=== PATIENT | female | born 1955 | race Native Hawaiian/Other Pacific Islander ===

== ENCOUNTER 2020-06-03 18:49 | Emergency (ER) | payer OTHER | END 2020-06-03 21:25 | disposition home or self-care (01) | LOC: CSHERS 18:49 | DX: T83.028A Displacement of other urinary catheter, initial encounter (principal) | CPT/HCPCS: 51702; 74018 ==

== ENCOUNTER 2021-09-20 08:31 | Emergency (ER) | payer OTHER ==
[2021-09-20 09:51] LABS: Bilirubin Neg (Negative); Blood, Urine 250 (Negative); Clarity Cloudy (Clear); Glucose, Urine (Dipstick) Normal (Negative); Ketone, Urine Negative (Negative); Leukocyte 500 (Negative); Nitrite Positive (Negative); Protein, Urine (Dipstick) 100 mg/dl (Neg-Trace); Urobilinogen Normal mg/dL (Less than 2)
[2021-09-20 10:03] LABS: Bacteria/HPF 4+ HPF (None Seen); RBC/HPF 21-50 HPF (0-3); Squamous Epithelial 0-3 HPF (0-3); WBC/HPF 21-50 HPF (0-3)
[2021-09-20] MEDS ORDERED: levETIRAcetam in NS 100 ML ONE (15:39)
== END 2021-09-20 11:10 | disposition home or self-care (01) ==
LOC: CSHERS 08:31
DX: N30.01 Acute cystitis with hematuria (principal); Z86.73 Personal history of transient ischemic attack (TIA), and cerebral infarction without residual deficits
CPT/HCPCS: 81003; 81015; 87086; J1953

== ENCOUNTER 2021-09-20 12:56 | Inpatient (IN) | payer OTHER ==
[2021-09-20 13:46] LABS: #Eosinphils 0.1 10x3/uL (0.0-0.5); #Monocytes 0.7 10x3/uL (0.0-1.1); #Neutrophils 6.5 10x3/uL (1.5-8.4); %Basophils 0.4 % (0.0-2.0); %Eosinophils 1.4 % (0.0-6.0); %Lymphocytes 27.2 % (18.0-47.0); %Monocytes 6.5 % (0.0-10.0); %Neutrophils 64.1 % (40.0-75.0); Hemoglobin 11.4 g/dL (12.0-15.5); Mean Corpuscular HGB CONC 33.2 g/dL (32.0-36.0); Mean Corpuscular Hemoglobin 29.3 pg (27.0-33.0); Mean Corpuscular Volume 88.2 fl (81.6-98.3); Mean Platelet Volume 9.4 fl (7.4-10.4); Platelet Count 313 10x3/uL (150-450); RBC Distribution Width 12.9 % (11.5-14.5); Red Blood Cell (RBC) Count 3.89 10x6/uL (3.90-5.03); White Blood Cell (WBC) Count 10.2 10x3/uL (3.5-10.5)
[2021-09-20 14:12] LABS: ALT (SGPT) 9 U/L (8-55); AST (SGOT) 19 U/L (5-34); Albumin 3.8 g/dL (3.4-4.8); Alkaline Phosphatase 76 U/L (40-110); Anion Gap 14 mmol/L (10-20); BUN (Urea Nitrogen) 17 mg/dL (9.8-20.1); Bilirubin, Total 0.5 mg/dL (0.2-1.2); Calc. Creatinine Clearance 0 mL/min (70-130); Calcium 9.3 mg/dL (7.8-10.44); Carbon Dioxide 23 mmol/L (23-31); Chloride 98 mmol/L (98-107); Estimated GFR 97; Globulin 3.4 g/dL (2.4-3.5); Glucose 186 mg/dL (80-115); Potassium 3.5 mmol/L (3.5-5.1); Protein, Total 7.2 g/dL (5.8-8.1); Sodium 131 mmol/L (136-145)
[2021-09-20] MEDS ORDERED: cefTRIAXone\\ROCEPHIN 2 GM VIAL ONE (14:55)
[2021-09-20 15:52] LABS: SARS-CoV-2 NAA Rapid Test Not Detected (NotDetected)
[2021-09-20] MEDS ORDERED: Valproate Sodium 250 mg/5 ml UD Cup PO SCH ×2 (16:00→21:00)
[2021-09-20 17:01] LABS: Lactic Acid 1.2 mmol/L (0.5-2.2)
[2021-09-20] MEDS ORDERED: Labetalol HCl 100 MG/20 ML VIAL SLOW IVP PRN (18:45)
[2021-09-20] MEDS ORDERED: Moisturizing Cream (Eucerin) 113 GM JAR TOP PRN (18:45)
[2021-09-20] MEDS ORDERED: hydrALAZINE 20 MG/ML VIAL SLOW IVP PRN (18:45)
[2021-09-20] MEDS ORDERED: Ondansetron PF 4 MG/2 ML Vial IVP PRN (18:45)
[2021-09-20] MEDS ORDERED: Acetaminophen 650 MG Suppository PR PRN (18:45)
[2021-09-20] MEDS ORDERED: Dextrose 50% Abboject 50 ML SYRINGE SLOW IVP PRN (18:54)
[2021-09-20] MEDS ORDERED: Dextrose 5% in Water 1,000 ML IV PRN (18:54)
[2021-09-20] MEDS ORDERED: Acetaminophen 650 MG/20.3 ML UDCUP PER TUBE PRN (19:22)
[2021-09-20 19:53] LABS: Troponin I Less than 0.010 ng/mL (< 0.028)
[2021-09-20] MEDS ORDERED: Piperacillin/Tazobactam 3.375 GM in Sodium Chloride 0.9% 100 ML IVPB SCH (20:00)
[2021-09-20] MEDS: Lactated Ringer's 1,000 ML IV SCH (20:25)
[2021-09-20] MEDS ORDERED: Aspirin Chewable 81 MG TAB PER TUBE SCH (21:00)
[2021-09-20] MEDS ORDERED: levETIRAcetam 500 MG TAB PO SCH (21:00)
[2021-09-20] MEDS ORDERED: Metoprolol Tartrate 50 MG TAB PO SCH (21:00)
[2021-09-20] MEDS: Famotidine 20 MG TAB PER TUBE SCH (22:39)
[2021-09-20] MEDS: Atorvastatin Calcium 40 MG TAB PER TUBE SCH (22:39)
[2021-09-20] MEDS: Valproate Sodium 250 mg/5 ml UD Cup PER TUBE SCH (22:42)
[2021-09-20] MEDS: levETIRAcetam 100 mg/ml Oral Solution PER TUBE SCH (22:46)
[2021-09-20 23:07] LABS: Troponin I Less than 0.010 ng/mL (< 0.028)
[2021-09-21] MEDS: Piperacillin/Tazobactam 3.375 GM in Sodium Chloride 0.9% 100 ML IVPB SCH ×4 (00:04→23:21)
[2021-09-21 03:07] LABS: #Eosinphils 0.1 10x3/uL (0.0-0.5); #Monocytes 0.7 10x3/uL (0.0-1.1); #Neutrophils 5.8 10x3/uL (1.5-8.4); %Basophils 0.4 % (0.0-2.0); %Eosinophils 1.3 % (0.0-6.0); %Lymphocytes 28.8 % (18.0-47.0); %Monocytes 7.7 % (0.0-10.0); %Neutrophils 61.6 % (40.0-75.0); Hemoglobin 9.3 g/dL (12.0-15.5); Mean Corpuscular HGB CONC 32.9 g/dL (32.0-36.0); Mean Corpuscular Hemoglobin 29.6 pg (27.0-33.0); Mean Corpuscular Volume 90.1 fl (81.6-98.3); Mean Platelet Volume 9.6 fl (7.4-10.4); Platelet Count 220 10x3/uL (150-450); RBC Distribution Width 12.9 % (11.5-14.5); Red Blood Cell (RBC) Count 3.14 10x6/uL (3.90-5.03); White Blood Cell (WBC) Count 9.4 10x3/uL (3.5-10.5)
[2021-09-21 04:23] LABS: Anion Gap 16 mmol/L (10-20); BUN (Urea Nitrogen) 18 mg/dL (9.8-20.1); Calc. Creatinine Clearance 58 mL/min (70-130); Calcium 8.4 mg/dL (7.8-10.44); Carbon Dioxide 21 mmol/L (23-31); Cardiac Risk 3.5 (Less than 4.5); Chloride 103 mmol/L (98-107); Cholesterol 108 mg/dl (< 200 Desired); Estimated GFR 99; Glucose 119 mg/dL (80-115); HDL Cholesterol 31 mg/dL (>60 Neg Risk); LDL Cholesterol, Calculated 64 mg/dL; Potassium 3.2 mmol/L (3.5-5.1); Sodium 137 mmol/L (136-145); Triglycerides 65 mg/dL (Less than 150)
[2021-09-21] MEDS ORDERED: Potassium Bicarbonate/Cit Ac 20 MEQ TAB PER TUBE SCH (05:30)
[2021-09-21 06:20] VITALS: BMI 18.2
[2021-09-21] MEDS: Oxybutynin 5 MG TAB PER TUBE SCH (07:47)
[2021-09-21] MEDS: Famotidine 20 MG TAB PER TUBE SCH ×2 (07:47→21:01)
[2021-09-21] MEDS: Aspirin Chewable 81 MG TAB PER TUBE SCH (07:47)
[2021-09-21] MEDS: Valproate Sodium 250 mg/5 ml UD Cup PER TUBE SCH ×2 (07:48→21:01)
[2021-09-21] MEDS: levETIRAcetam 100 mg/ml Oral Solution PER TUBE SCH ×2 (07:48→21:08)
[2021-09-21] MEDS: Lactated Ringer's 1,000 ML IV SCH (08:21)
[2021-09-21] MEDS ORDERED: Oxybutynin 5 MG TAB PO SCH (09:00)
[2021-09-21] MEDS ORDERED: Lactated Ringer's 1,000 ML IV SCH (16:09)
[2021-09-21] MEDS: Atorvastatin Calcium 40 MG TAB PER TUBE SCH (21:01)
[2021-09-22 08:12] LABS: #Eosinphils 0.3 10x3/uL (0.0-0.5); #Monocytes 0.4 10x3/uL (0.0-1.1); #Neutrophils 2.8 10x3/uL (1.5-8.4); %Basophils 0.6 % (0.0-2.0); %Eosinophils 5.2 % (0.0-6.0); %Monocytes 8.7 % (0.0-10.0); %Neutrophils 56.1 % (40.0-75.0); Hemoglobin 8.1 g/dL (12.0-15.5); Mean Corpuscular HGB CONC 32.1 g/dL (32.0-36.0); Mean Corpuscular Hemoglobin 29.5 pg (27.0-33.0); Mean Corpuscular Volume 91.6 fl (81.6-98.3); Mean Platelet Volume 9.8 fl (7.4-10.4); Platelet Count 207 10x3/uL (150-450); RBC Distribution Width 13.2 % (11.5-14.5); Red Blood Cell (RBC) Count 2.75 10x6/uL (3.90-5.03)
[2021-09-22 08:27] LABS: Anion Gap 12 mmol/L (10-20); BUN (Urea Nitrogen) 12 mg/dL (9.8-20.1); Calc. Creatinine Clearance 84 mL/min (70-130); Calcium 8.4 mg/dL (7.8-10.44); Carbon Dioxide 28 mmol/L (23-31); Chloride 104 mmol/L (98-107); Estimated GFR 105; Glucose 74 mg/dL (80-115); Potassium 3.7 mmol/L (3.5-5.1); Sodium 140 mmol/L (136-145)
[2021-09-22] MEDS: Piperacillin/Tazobactam 3.375 GM in Sodium Chloride 0.9% 100 ML IVPB SCH ×3 (08:57→23:20)
[2021-09-22] MEDS: Aspirin Chewable 81 MG TAB PER TUBE SCH (09:01)
[2021-09-22] MEDS: Oxybutynin 5 MG TAB PER TUBE SCH (09:01)
[2021-09-22] MEDS: Famotidine 20 MG TAB PER TUBE SCH (09:01)
[2021-09-22] MEDS: Valproate Sodium 250 mg/5 ml UD Cup PER TUBE SCH ×2 (09:03→21:59)
[2021-09-22] MEDS: levETIRAcetam 100 mg/ml Oral Solution PER TUBE SCH (09:10)
[2021-09-22] MEDS ORDERED: levETIRAcetam 500 mg/5 ml Oral Solution PER TUBE SCH (09:15)
[2021-09-22] MEDS ORDERED: Dextrose 5 %-0.45 % NaCl 1,000 ML IV SCH (13:30)
[2021-09-22] MEDS: Atorvastatin Calcium 40 MG TAB PER TUBE SCH (21:57)
[2021-09-22] MEDS: Pantoprazole 40 MG VIAL IVP SCH (21:58)
[2021-09-22] MEDS: levETIRAcetam 500 mg/5 ml Oral Solution PER TUBE SCH (22:16)
[2021-09-23 05:23] LABS: #Eosinphils 0.3 10x3/uL (0.0-0.5); #Monocytes 0.5 10x3/uL (0.0-1.1); #Neutrophils 2.9 10x3/uL (1.5-8.4); %Basophils 0.6 % (0.0-2.0); %Eosinophils 5.2 % (0.0-6.0); %Lymphocytes 29.1 % (18.0-47.0); %Monocytes 10.1 % (0.0-10.0); %Neutrophils 54.8 % (40.0-75.0); Hemoglobin 8.7 g/dL (12.0-15.5); Mean Corpuscular HGB CONC 33.3 g/dL (32.0-36.0); Mean Corpuscular Hemoglobin 29.6 pg (27.0-33.0); Mean Corpuscular Volume 88.8 fl (81.6-98.3); Mean Platelet Volume 9.6 fl (7.4-10.4); RBC Distribution Width 13.1 % (11.5-14.5); Red Blood Cell (RBC) Count 2.94 10x6/uL (3.90-5.03); White Blood Cell (WBC) Count 5.2 10x3/uL (3.5-10.5)
[2021-09-23 05:37] LABS: Anion Gap 13 mmol/L (10-20); BUN (Urea Nitrogen) 7 mg/dL (9.8-20.1); Calc. Creatinine Clearance 83 mL/min (70-130); Calcium 8.5 mg/dL (7.8-10.44); Carbon Dioxide 27 mmol/L (23-31); Chloride 103 mmol/L (98-107); Estimated GFR 104; Glucose 105 mg/dL (80-115); Potassium 3.2 mmol/L (3.5-5.1); Sodium 140 mmol/L (136-145)
[2021-09-23 06:42] LABS: Platelet Count 236 10x3/uL (150-450)
[2021-09-23] MEDS: Piperacillin/Tazobactam 3.375 GM in Sodium Chloride 0.9% 100 ML IVPB SCH (08:59)
[2021-09-23] MEDS: Pantoprazole 40 MG VIAL IVP SCH (09:00)
[2021-09-23] MEDS: levETIRAcetam 500 mg/5 ml Oral Solution PER TUBE SCH (09:01)
[2021-09-23] MEDS: Valproate Sodium 250 mg/5 ml UD Cup PER TUBE SCH (09:01)
[2021-09-23] MEDS: Oxybutynin 5 MG TAB PER TUBE SCH (09:03)
[2021-09-23 12:42] VITALS: BP 141/72; TEMP 97.6
== END 2021-09-23 14:35 | disposition home health service (06) | DRG 699 ==
LOC: CSHERS 12:56 → CSHICU 15:15 → CSHTELE 09-21 10:52
PROVIDERS: ADMIT Internal Medicine; ATTEND Family Medicine
DX: T83.510A Infection and inflammatory reaction due to cystostomy catheter, initial encounter (principal); D62 Acute posthemorrhagic anemia; I69.351 Hemiplegia and hemiparesis following cerebral infarction affecting right dominant side; N30.00 Acute cystitis without hematuria; Z68.1 Body mass index [BMI] 19.9 or less, adult; I10 Essential (primary) hypertension; L98.419 Non-pressure chronic ulcer of buttock with unspecified severity; N93.9 Abnormal uterine and vaginal bleeding, unspecified; E78.5 Hyperlipidemia, unspecified; G40.909 Epilepsy, unspecified, not intractable, without status epilepticus; I95.9 Hypotension, unspecified; R82.71 Bacteriuria; N20.0 Calculus of kidney; R63.6 Underweight; T42.6X5A Adverse effect of other antiepileptic and sedative-hypnotic drugs, initial encounter; Z20.822 Contact with and (suspected) exposure to COVID-19; L89.152 Pressure ulcer of sacral region, stage 2; Y84.6 Urinary catheterization as the cause of abnormal reaction of the patient, or of later complication, without mention of misadventure at the time of the procedure; Z83.3 Family history of diabetes mellitus; Z90.49 Acquired absence of other specified parts of digestive tract; Z93.1 Gastrostomy status; Z79.82 Long term (current) use of aspirin; Z93.3 Colostomy status; Z79.899 Other long term (current) drug therapy; Z74.01 Bed confinement status; Z82.5 Family history of asthma and other chronic lower respiratory diseases; Z82.49 Family history of ischemic heart disease and other diseases of the circulatory system
CPT/HCPCS: 36415; 36416; 51102; 70450; 71045; 74177; 80048; 80053; 80061; 81003; 81015; 83605; 83880; 84146; 84484; 85025; 86140; 86850; 86900; 86901; 87040; 87077; 87086; 87186; 93005; 93010; 93306; 96361; 96365; 96367; C9113; J0696; J1953; J2543; J3490; J7042; J7120; U0002

== ENCOUNTER 2022-03-01 09:54 | Emergency (ER) | payer OTHER ==
[2022-03-01 11:08] LABS: Actual Bicarbonate (HCO3v) 15 mEq/L (22-28); Base Excess -6.6 mEq/L (-2.0 to +3.0); Calcium, Ionized (venous) 0.86 mmol/L (1.16-1.32); Chloride (VBG) 98 mmol/L (98-106); Hemoglobin (Hb) 14.4 g/dL (11.7-16.0); Potassium (VBG) 4.86 mmol/L (3.70-5.30); Puncture Site Other Site; RapidComm Collect By CBN; Sodium 125.6 mmol/L (133-146); pH (venous) 7.46 (7.32-7.43)
[2022-03-01 11:18] LABS: Hemoglobin 12.1 g/dL (12.0-15.5); Mean Corpuscular HGB CONC 32.6 g/dL (32.0-36.0); Mean Corpuscular Hemoglobin 29.3 pg (27.0-33.0); Mean Corpuscular Volume 89.8 fl (81.6-98.3); Mean Platelet Volume 10.6 fl (7.4-10.4); Platelet Count 173 10x3/uL (150-450); RBC Distribution Width 14.8 % (11.5-14.5); Red Blood Cell (RBC) Count 4.13 10x6/uL (3.90-5.03); White Blood Cell (WBC) Count 26.5 10x3/uL (3.5-10.5)
[2022-03-01 11:26] LABS: ALT (SGPT) 168 U/L (8-55); AST (SGOT) 121 U/L (5-34); Albumin 3.5 g/dL (3.4-4.8); Alkaline Phosphatase 144 U/L (40-110); Anion Gap 22 mmol/L (10-20); BUN (Urea Nitrogen) 58 mg/dL (9.8-20.1); Bilirubin, Total 0.7 mg/dL (0.2-1.2); Calc. Creatinine Clearance 0 mL/min (70-130); Calcium 9.1 mg/dL (7.8-10.44); Carbon Dioxide 17 mmol/L (23-31); Chloride 99 mmol/L (98-107); Estimated GFR 23; Globulin 3.6 g/dL (2.4-3.5); Glucose 71 mg/dL (80-115); Potassium 5.5 mmol/L (3.5-5.1); Protein, Total 7.1 g/dL (5.8-8.1); Sodium 132 mmol/L (136-145)
[2022-03-01 11:32] LABS: SARS-CoV-2 NAA Rapid Test Not Detected (NotDetected)
[2022-03-01 11:42] LABS: MDiff Complete? YES
[2022-03-01] MEDS ORDERED: cefTRIAXone\\ROCEPHIN 2 GM VIAL ONE (11:56)
[2022-03-01] MEDS ORDERED: Vancomycin 1 GM VIAL ONE (11:56)
[2022-03-01 12:38] LABS: Band 32 % (5-11); Lymphocytes 3 % (21-51); Metamyelocyte 14 % (0-0); Monocytes 5 % (0-10); Neutrophil 45 % (42-75)
[2022-03-01 12:40] LABS: Anisocytosis SLIGHT = 6-15 cells (100X) (0-5/hpf); Dohle Bodies SLIGHT; Elliptocytes SLIGHT = 2-5 cells (100X) (0-1/hpf); Hypochromia SLIGHT = 6-15 cells (100X) (0-5/hpf); Ovalocytes SLIGHT = 2-5 cells (100X) (0-1/hpf); Platelet Morphology Comment Appears Adequate; Toxic Granulation MODERATE; Vacuoles SLIGHT
[2022-03-01 12:41] LABS: Reflex for Review?? YES
[2022-03-01 15:24] LABS: Lactic Acid 3.8 mmol/L (0.5-2.2)
== END 2022-03-01 15:26 ==
LOC: CSHERS 09:54
DX: N20.1 Calculus of ureter (principal); N17.9 Acute kidney failure, unspecified; A41.9 Sepsis, unspecified organism; I10 Essential (primary) hypertension; Z20.822 Contact with and (suspected) exposure to COVID-19
CPT/HCPCS: 36415; 71045; 74176; 80053; 82805; 83605; 85025; 85060; 87040; 87077; 87149; 93005; 96365; 96366; 96367; J0696; J3370

== ENCOUNTER 2022-06-05 08:43 | Outpatient (CLI) | payer OTHER | END 2022-06-05 08:44 | LOC: CSHCT 08:43 | PROVIDERS: ATTEND Urology | DX: N20.2 Calculus of kidney with calculus of ureter (principal); Z96.0 Presence of urogenital implants | CPT/HCPCS: 74176 ==

== ENCOUNTER 2023-02-20 10:57 | Outpatient (CLI) | payer OTHER | END 2023-02-20 10:58 | disposition home or self-care (01) | LOC: CSHULT 10:57 | PROVIDERS: ATTEND Urology | DX: N20.0 Calculus of kidney (principal) | CPT/HCPCS: 76770 ==